=== PATIENT | female | born 1985 | race African-American/Black ===

== ENCOUNTER 2023-06-03 23:10 | Emergency (ER) | payer MEDICAID, OTHER ==
[~2023-06-03] VITALS: Ht 154.9 cm; Wt 67.1 kg
[2023-06-04 01:01] LABS: BASO % 0.6 % (0.0-1.0); EOS # 0.2 10^3/uL (0.0-0.5); EOS % 3.1 % (0.0-3.0); HEMATOCRIT 36.8 % (36.0-47.0); HEMOGLOBIN 12.5 g/dl (12.0-15.5); LYMPH # 2.6 10^3/uL (1.5-5.0); LYMPH % 38.9 % (24.0-44.0); MEAN CORPUSCULAR HEMOGLOBIN 29.8 pg (27.0-33.0); MEAN CORPUSCULAR VOLUME 87.6 fl (80.0-96.0); MONO # 0.4 10^3/uL (0.0-0.8); MONO % 6.5 % (2.0-8.0); NEUTROPHILS # 3.5 10^3/uL (1.5-8.5); NEUTROPHILS % 50.8 % (36.0-66.0); PLATELET COUNT, AUTOMATED 293 10^3/uL (150-450); WHITE BLOOD COUNT 6.8 10^3/uL (4.0-10.0)
[2023-06-04 01:26] LABS: ALBUMIN 3.6 G/DL (3.2-5.2); ALKALINE PHOSPHATASE 76 U/L (46-116); ALT/SGPT 26 U/L (7.0-40); AST/SGOT 18 U/L (<34); BILIRUBIN,DIRECT < 0.1 MG/DL (<0.4); BILIRUBIN,TOTAL 0.3 MG/DL (0.3-1.2); BLOOD UREA NITROGEN 15 MG/DL (9-23); CALCIUM LEVEL 9.4 MG/DL (8.5-10.1); CARBON DIOXIDE LEVEL 28 MMOL/L (20-31); CHLORIDE LEVEL 106 MMOL/L (98-107); CREATININE FOR GFR 0.72 MG/DL (0.55-1.30); GLOMERULAR FILTRATION RATE > 60.0 (>60); GLUCOSE, FASTING 108 MG/DL (60-100); POTASSIUM SERUM 3.8 MMOL/L (3.5-5.1); SODIUM LEVEL 138 MMOL/L (136-145)
[2023-06-04] MEDS: KETOROLAC 30 MG/ML 1ML VIAL IV ONE (01:59)
[2023-06-04] MEDS ORDERED: TRAM50TA2 PO (02:15)
[2023-06-04 02:39] VITALS: BP 119/74; TEMP 98; O2SAT 99
[2023-06-04 02:47] LABS: Trichomonas vaginalis (AMP) NOT DETECTED (NEGATIVE)
[2023-06-04 03:10] LABS: GC DNA AMPLIFICATION NEGATIVE (NEGATIVE)
[2023-06-04] MEDS ORDERED: DOXY100T PO (10:36)
== END 2023-06-04 02:42 | disposition home or self-care (01) ==
LOC: M ED 23:10
DX: A74.9 Chlamydial infection, unspecified (principal); N94.6 Dysmenorrhea, unspecified; R42 Dizziness and giddiness; J45.909 Unspecified asthma, uncomplicated; Z79.2 Long term (current) use of antibiotics; Z79.899 Other long term (current) drug therapy
CPT/HCPCS: 80048; 80076; 81001; 84702; 85025; 86850; 86900; 86901; 87086; 87661; 87810; 87850; 96374; 99284; J1885